=== PATIENT | male | born 1995 | race Caucasian/White ===

== ENCOUNTER 2025-02-08 12:15 | Emergency (ER) | payer OTHER, SELFPAY ==
[2025-02-08 12:17] VITALS: BP 143/93
--- NOTE | 2025-02-08 12:36 | ED.GENMED ---
History of Present Illness
General
Chief Complaint: Abdominal Symptoms
Time Seen by Provider: 02/08/25 12:24
History of Present Illness
History of Present Illness:
Patient is a 29-year-old man with history of TBI, prior stroke, G-tube dependence, diabetes presenting to the emergency department with vomiting. Patient is feeding tube dependent via G-tube. This morning was found covered in emesis. Then notes
that he had a cough as well as fevers. They called his primary care doctor who told him to come to the emergency department for evaluation. Family declines any recent surgical interventions. Patient has not been complaining of any abdominal pain.
No diarrhea. Otherwise history is limited given patient's cognitive disability
Past History
Past History
ED Past Medical History: Other (autism)
Phy Exam
Physical Exam
Physical Exam:
GENERAL: in no acute distress
HEENT: normocephalic, extraocular movements intact, moist oral mucosa
NECK: normal inspection
RESPIRATORY: no respiratory distress, coarse breath sounds anteriorly
CARDIOVASCULAR: regular rate and rhythm
ABDOMEN/: soft, non-distended, non-tender to palpation, no rebound or guarding, G-tube in place
EXTREMITIES: non-tender, no edema/swelling
NEUROLOGIC: awake and alert, moves all extremities
SKIN: warm
Sepsis
Sepsis Screening
Sepsis Assessment: Sepsis Ruled Out
Sepsis Screen
Sepsis Screen: Sepsis Ruled Out
Date: 02/08/25
Time: 15:06
Course
Orders/Labs/Results
Orders:
Orders
02/08/25 12:34
Ondansetron HCl [Zofran] 4 mg TUBE NOW STA
CR Chest - 2 Views Urgent
Comment:
Reason For Exam: cough
02/08/25 12:58
COVID-19 Antigen Urgent
Source: Nasal Swab
Influenza A+B Rapid Molecular Urgent
ALFREDO Source: Nasal Swab
Specimen Description:
Vital Signs
Initial and Last Documented VS:
Initial Vital Signs
Temp Pulse Resp BP Pulse Ox
98 F 114 20 143/93 93
02/08/25 12:17 02/08/25 12:17 02/08/25 12:17 02/08/25 12:17 02/08/25 12:17
Last Documented Vital Signs
Temp Pulse Resp BP Pulse Ox
98 F 114 20 143/93 93
02/08/25 12:17 02/08/25 12:17 02/08/25 12:17 02/08/25 12:17 02/08/25 12:17
MDM/Problems Addressed
Differential Diagnosis Includes:
Patient is a 29-year-old male with history of traumatic brain injury, G-tube dependence, diabetes presenting to the emergency department with fevers and cough after vomiting. Vitals are notable for being afebrile. On exam he does have coarse
breath sounds anteriorly with a soft benign abdomen. Concern for aspiration pneumonia. Considered intra-abdominal pathology though less likely as patient has a soft benign abdomen. Could be viral illness as well. After shared decision making and
given patient's cognitive delay will obtain respiratory swabs and chest x-ray. Consider obtaining CT scan of the abdomen however will hold off at this time. Will trial Zofran and then G-tube feeds. If unable to tolerate feeds then we will proceed
with CT scan. Patient's father completed Accu-Chek at bedside which was slightly elevated in the 200s. They do state that it is normal after he receives both Tylenol and Motrin.
*Critical Care Note
Total Time (30-74mins, 75-104mins- exclusive of procedures): Not Applicable
Update Note
Update Note:
On reevaluation patient is asleep resting comfortably. Respiratory swabs negative. Chest x-ray per my interpretation with no obvious opacity. I did discuss with patient's parents at length that if he did aspirate it might show up later on the
x-ray. Patient's parents advised to follow up on patient's temperature shortness of breath and cough. They are requesting to trial feeds.
Patient's parents gave patient his full tube feeding. Patient tolerated it without any difficulty. Repeat abdominal exam is benign. Repeat lung exam does show some congestion and crackles in the anterior lung becerra is unchanged. symptoms have
improved. Will discharge with a short course of Zofran. Strict return precautions given which include but not limited to fevers recurrent vomiting, worsening respiratory symptoms or new shortness of breath/cough. Will discharge at this time.
ED Attending Note
-
Portions of this chart may have been created with voice recognition software.� Occasional wrong word or��sound alike� substitutions may have occurred due to the inherent limitations of voice recognition software.
Discharge Plan
Departure
Patient Disposition: Home (Routine Discharge)
Date of Disposition: 02/08/25
Time of Disposition: 15:03
Patient with high blood pressure during this ER visit?: No
Discharge Problem:
Vomiting
Instructions: Nausea and Vomiting, Adult (DC)
Prescriptions:
New
ondansetron HCl 4 mg tablet
4 mg feeding tube Q8H PRN (Reason: nausea and vomiting) 3 Days Qty: 7 0RF
No Action
trazodone 50 MG tablet
25 mg feeding tube HS
carbamazepine 200 MG/10 ML suspension
30 ml feeding tube HS
carbamazepine 200 MG/10 ML suspension
20 ml feeding tube BID
valproic acid (as sodium salt) 250 MG/5 ML solution
10 ml feeding tube QID
clobazam [Onfi] 2.5 MG/ML suspension
4 ml feeding tube BID
Epidiolex 100 MG Liquid
5 ml feeding tube BID
Patient Comments:
100mg/ml
Tylenol
30 ml feeding tube PRN PRN (Reason: pain)
Patient Comments:
500mg/15ml
insulin lispro [Humalog U-100 Insulin] 100 UNIT/ML solution
12 unit SC BID
Patient Comments:
1200,1700
insulin lispro [Humalog KwikPen Insulin] 100 UNIT/ML insulin pen
0 - 10 units SC PRN PRN (Reason: Hyperglycemia)
Patient Comments:
Sliding scale -140-180- 1 unit; 181-220-2 units; [id number]
insulin lispro [Humalog KwikPen Insulin] 100 UNIT/ML insulin pen
14 units SC BID
Patient Comments:
0800, 2100
insulin glargine [Lantus Solostar U-100 Insulin] 300 UNITS/3 ML insulin pen
22 units SC HS
glucagon HCl [Glucagon (HCl) Emergency Kit] 1 MG recon soln
1 mg IM PRN PRN (Reason: hypoglycemia)
Peptamen
375 ml feeding tube QID
Patient Comments:
Petpamen -
Referrals:
Tuan Jim, DO [Family Provider] -
Activity Restrictions/Additional Instructions:
You have been evaluated in the Emergency Department today for nausea and vomiting. Your evaluation suggests that your symptoms are most likely due to viral illness which will improve on its own with rest and fluids. Remember to drink plenty of
fluids at home.
Please follow up with your primary care physician within two days.
Return to the Emergency Department if you experience worsening or uncontrolled pain, inability to tolerate fluids by mouth, difficulty breathing, fevers 100.4�F or greater, recurrent vomiting, or any other concerning symptoms.
Thank you for choosing us for your care.
Interventions
Interventions:
*Risk Screen - Suicide Last Done: 02/08/25 12:20
*General Assessment Last Done: 02/08/25 12:17
*Neglect/Abuse Screening Last Done: 02/08/25 12:20
*ED- Fall Risk Assessment Last Done: 02/08/25 14:00
GM-Wmwrgz-Eztsxfjutv Assessment Last Done: 02/08/25 14:00
Discharge Date and Time
Print Language: TRINIDADIAN
[2025-02-08] MEDS: ZOFRAN 4 MG TUBE (12:57)
[2025-02-08 13:49] LABS: COVID-19 Antigen Negative (Negative)
[2025-02-08 15:24] VITALS: BP 130/70
== END 2025-02-08 15:28 | disposition home or self-care (01) ==
LOC: EMR 12:15
PROVIDERS: EMERGENCY PHYSICIAN Student in an Organized Health Care Education/Training Program; FAMILY PHYSICIAN Family Medicine
DX: R11.10 Vomiting, unspecified (principal); R05.9 Cough, unspecified; E11.9 Type 2 diabetes mellitus without complications; F84.0 Autistic disorder; Z93.1 Gastrostomy status; Z11.52 Encounter for screening for COVID-19; Z87.820 Personal history of traumatic brain injury
CPT/HCPCS: 99284; 71046; 87502; 87811